=== PATIENT | male | born 1980 | race Caucasian/White ===

== ENCOUNTER 2018-08-01 09:24 | Emergency (ER) | payer BC, OTHER ==
--- NOTE | 2018-08-01 10:18 | EDM.PDOC ---
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 2)During the evening he had spontaneous onset of epistaxis. This made it difficult for him to sleep last night. The episode of epistaxis has relented. 3) left anterior pectoral pain that's intermittent. Not related to coughing or breathing nor is there shortness of breath associated with it. No history of "catching" of his chest on end inspiration when he takes a deep breath. He is a nonsmoker. He denies any family members getting sick or eating unusual food. Yesterday had chicken and green beans no one at sick or experienced diarrhea or abdominal discomfort from the meal at home. Chews occasional tobacco. And drinks 2-3 beers 2-3 times a week. Otherwise he is healthy. Weighs 225 pounds and notes that occasionally he gets anxious. - Related Data Allergies Allergy/AdvReac Type Severity Reaction Status Date / Time No Known Allergies Allergy Verified 08/01/18 09:41 Home Meds: Home Meds . [Unable to Verify Home Med List] 08/01/18 [History] ED ROS GENERAL - Review of Systems Review Of Systems: ROS reveals no pertinent complaints other than HPI. Constitutional: Reports: No Symptoms HEENT: Reports: No Symptoms Respiratory: Reports: Cough Cardiovascular: Reports: Chest Pain Endocrine: Reports: No Symptoms GI/Abdominal: Reports: Diarrhea, Vomiting : Reports: No Symptoms Musculoskeletal: Reports: No Symptoms Skin: Reports: No Symptoms Neurological: Reports: Headache Psychiatric: Reports: Anxiety Hematologic/Lymphatic: Reports: No Symptoms Immunologic: Reports: No Symptoms ED EXAM, GENERAL - Physical Exam Exam: See Below Free Text/Narrative:: Pleasant mesomorphic healthy looking young man who is accompanied by a good friend; patient looks tired and has mild scleral injection. Exam Limited By: No Limitations General Appearance: Alert, WD/WN, Mild Distress Eye Exam: Bilateral Eye: Normal Inspection (Technical easily visualized. Widely dilated pupils react appropriately to lights turned on and off) Ear Exam: Bilateral Ear: Auricle Normal, Canal Normal, TM normal Nose: Normal Inspection, Other (No intranasal blood. Mild dried mucoid crusts noted within the nares no intra intra-nasal erythema) Throat/Mouth: Normal Inspection, Normal Teeth, Normal Gums, Normal Voice, No Airway Compromise, Other (Slightly dry oral mucosa and mild cracking of lips) Respiratory/Chest: No Respiratory Distress, Lungs Clear, Normal Breath Sounds, No Accessory Muscle Use, Chest Non-Tender, Other (With firm pectoral left chest , individual left rib, and left intercostal pressure I could not reciprocate or re-create the chest wall pain. He knows the discomfort is deep. Pain does not occur with end inspiration. No rub noted no rales noted) Cardiovascular: Normal Peripheral Pulses, Regular Rate, Rhythm, No Edema, No Gallop, No JVD, No Murmur, No Rub Peripheral Pulses: 2+: Brachial (L), Brachial (R), Radial (L), Radial (R) GI/Abdominal: Normal Bowel Sounds, Soft, Other ( mild guarding left lower quadrant, no rebound) (Male) Exam: No Hernia, Other (Outpatient testicles without tenderness of pain no hernia noted) Rectal (Males) Exam: Deferred Back Exam: Normal Inspection ( spell several maneuver and straining/coughing), Other (No CVA discomfort with percussion) Extremities: Normal Inspection, Non-Tender, No Pedal Edema, Normal Capillary Refill Neurological: Alert, Oriented, CN II-XII Intact, Normal Cognition, Normal Gait, Normal Reflexes, No Motor/Sensory Deficits Psychiatric: Normal Affect, Normal Mood Skin Exam: Warm, Dry, Intact, Normal Color Lymphatic: Adenopathy EKG INTERPRETATION EKG Date: 08/01/18 Time: 08:31 Rhythm: NSR [place]: Normal P-Wave: Present QRS: Normal ST-T: Normal QT: Normal EKG Interpretation Comments: Deep Q lead 3, smaller Q in aVF diagnosed inferior infarct no ST elevation no arrhythmia diagnosis abnormal EKG Course - Vital Signs Last Recorded V/S: Last Vital Signs Temp 36.6 C 08/01/18 09:43 Pulse 87 08/01/18 09:43 Resp 13 08/01/18 09:43 BP 162/99 H 08/01/18 09:43 Pulse Ox 99 08/01/18 09:43 - Orders/Labs/Meds Orders: Active Orders 24 hr Category Date Time Status EKG Documentation Completion [RC] ASDIRECTED Care 08/01/18 10:08 Active CXR [Chest 2V] [CR] Stat Exams 08/01/18 10:06 Taken EKG 12 Lead [EK] Urgent Ther 08/01/18 10:08 Ordered Labs: Laboratory Tests 08/01/18 08/01/18 08/01/18 Range/Units 10:20 10:20 10:20 WBC 5.5 (4.5-12.0) X10-3/uL RBC 5.08 (4.30-5.75) x10(6)uL Hgb 15.2 (13.5-17.8) g/dL Hct 44.9 (30.0-51.3) % MCV 88.5 (80-96) fL MCH 29.9 (27.7-33.6) pg MCHC 33.8 (32.2-35.4) g/dL RDW 12.2 (11.5-15.5) % Plt Count 195 (125-369) X10(3)uL MPV 7.7 (7.4-10.4) fL Neut % (Auto) 69.8 (46-82) % Lymph % (Auto) 21.4 (13-37) % [facility] % (Auto) 7.0 (4-12) % Eos % (Auto) 1 (1.0-5.0) % Baso % (Auto) 1 (0-2) % Neut # (Auto) 3.8 (1.6-8.3) # Lymph # (Auto) 1.2 (0.6-5.0) # [facility] # (Auto) 0.4 (0.0-1.3) # Eos # (Auto) 0.1 (0.0-0.8) # Baso # (Auto) 0.0 (0.0-0.2) # D-Dimer, Quantitative (0.0-0.59) mg/LFEU Sodium 139 (135-145) mmol/L Potassium 3.3 L (3.5-5.3) mmol/L Chloride 100 (100-110) mmol/L Carbon Dioxide 27 (21-32) mmol/L BUN 16 (7-18) mg/dL Creatinine 1.1 (0.70-1.30) mg/dL Est Cr Clr Drug Dosing TNP Estimated GFR (MDRD) > 60 (>60) BUN/Creatinine Ratio 14.5 (9-20) Glucose 119 H (80-116) mg/dL Calcium 9.2 (8.6-10.2) mg/dL Total Bilirubin 0.8 (0.1-1.3) mg/dL AST 21 (5-25) IU/L ALT 33 (12-36) U/L Alkaline Phosphatase 76 (56-112) IU/L Troponin I < 0.017 L (<0.017-0.056) ng/mL Total Protein 7.5 (6.0-8.0) g/dL Albumin 4.0 (3.5-5.2) g/dL Globulin 3.5 g/dL Albumin/Globulin Ratio 1.1 08/01/18 Range/Units 10:20 WBC (4.5-12.0) X10-3/uL RBC (4.30-5.75) x10(6)uL Hgb (13.5-17.8) g/dL Hct (30.0-51.3) % MCV (80-96) fL MCH (27.7-33.6) pg MCHC (32.2-35.4) g/dL RDW (11.5-15.5) % Plt Count (125-369) X10(3)uL MPV (7.4-10.4) fL Neut % (Auto) (46-82) % Lymph % (Auto) (13-37) % [facility] % (Auto) (4-12) % Eos % (Auto) (1.0-5.0) % Baso % (Auto) (0-2) % Neut # (Auto) (1.6-8.3) # Lymph # (Auto) (0.6-5.0) # [facility] # (Auto) (0.0-1.3) # Eos # (Auto) (0.0-0.8) # Baso # (Auto) (0.0-0.2) # D-Dimer, Quantitative 0.20 (0.0-0.59) mg/LFEU Sodium (135-145) mmol/L Potassium (3.5-5.3) mmol/L Chloride (100-110) mmol/L Carbon Dioxide (21-32) mmol/L BUN (7-18) mg/dL Creatinine (0.70-1.30) mg/dL Est Cr Clr Drug Dosing Estimated GFR (MDRD) (>60) BUN/Creatinine Ratio (9-20) Glucose (80-116) mg/dL Calcium (8.6-10.2) mg/dL Total Bilirubin (0.1-1.3) mg/dL AST (5-25) IU/L ALT (12-36) U/L Alkaline Phosphatase (56-112) IU/L Troponin I (<0.017-0.056) ng/mL Total Protein (6.0-8.0) g/dL Albumin (3.5-5.2) g/dL Globulin g/dL Albumin/Globulin Ratio - Re-Assessments/Exams Free Text/Narrative Re-Assessment/Exam: 08/01/18 10:30 Chest x-ray: Normal no cardiomegaly no infiltrate Departure - Departure Time of Disposition: 10:30 (I was surprised to find that he had abnormalities on his EKG demonstrated inferior old myocardial infarction. Troponins are negative today. D-dimer negative. R/O mild repiratory viral infection pneumothorax or abnormality within the lung. He has a viral mediated process. The influenza test was negative. He Is mildly dehydrated and was flushed with fluids. He's advised to gradually increase his diet as tolerated. He is not nauseated presently. I did not dispense any anti-emetics. He will be following up with his doctor in a week earlier first) Disposition: Home, Self-Care 01 Condition: Good Clinical Impression: Dehydration, mild, Gastroenteritis and colitis, viral, Discomfort in chest, Anxiety, Inferior myocardial infarction Coronary artery disease Qualifiers: Coronary Disease-Associated Artery/Lesion type: [place] artery [place] vs. transplanted heart: [place] heart Associated angina: without angina Qualified Code(s): I25.10 - Atherosclerotic heart disease of [place] coronary artery without angina pectoris Hypertension Qualifiers: Hypertension type: essential hypertension Qualified Code(s): I10 - Essential ( primary) hypertension Instructions: Hypokalemia, Chest Wall Pain Referrals: Holden Irwin MD [Primary Care Provider] - Forms: ED Department Discharge Additional Instructions: May take 1000mg Tylenol and 600mg Ibuprofen for pain and discomfort. Follow up with your Primary Care Provider as needed. May call for questions or come back if symptoms get acutely worse. - My Orders Last 24 Hours: My Active Orders 08/01/18 10:06 CXR [Chest 2V] [CR] Stat 08/01/18 10:08 EKG Documentation Completion [RC] ASDIRECTED EKG 12 Lead [EK] Urgent - Assessment/Plan Last 24 Hours: My Active Orders 08/01/18 10:06 CXR [Chest 2V] [CR] Stat 08/01/18 10:08 EKG Documentation Completion [RC] ASDIRECTED EKG 12 Lead [EK] Urgent
--- NOTE | 2018-08-01 12:39 | CR ---
INDICATION: Pectoral chest pain. CHEST: PA and lateral views of the chest reveal the heart, mediastinum, and bony thorax to be unremarkable. Overlying EKG leads are noted. An active infiltrate or effusion was not identified. IMPRESSION: No active disease. MTDD
== END 2018-08-01 11:20 | disposition home or self-care (01) ==
LOC: FB.ED 09:24
DX: I21.9 Acute myocardial infarction, unspecified (principal); K52.9 Noninfective gastroenteritis and colitis, unspecified; E86.0 Dehydration; I25.10 Atherosclerotic heart disease of native coronary artery without angina pectoris; R07.89 Other chest pain; F41.9 Anxiety disorder, unspecified
CPT/HCPCS: 36415; 71046; 80053; 84484; 85025; 85379; 87804; 87804-59; 93005; 99285-25

== ENCOUNTER 2020-03-05 09:00 | Emergency (ER) | payer OTHER, BC ==
--- NOTE | 2020-03-05 10:20 | EDM.PDOC ---
ED HPI GENERAL MEDICAL PROBLEM - General Chief Complaint: Laceration Time Seen by Provider: 03/05/20 09:10 Source of Information: Reports: Patient History Limitations: Reports: No Limitations - History of Present Illness INITIAL COMMENTS - FREE TEXT/NARRATIVE: Patient presented to the ED because of a left 4th finger injury. 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 He c/o mild pain and is able to extend and flex his finger with mild pain. Left Finger-Ring Pain Score (Numeric/FACES): 4 - Related Data Allergies Allergy/AdvReac Type Severity Reaction Status Date / Time No Known Allergies Allergy Verified 03/05/20 09:31 Home Meds: Home Meds Pantoprazole [ProTONIX Granules] 40 mg PO DAILY 03/05/20 [History] metFORMIN [Glucophage XR] 500 mg PO DAILY 03/05/20 [History] Past Medical History HEENT History: Reports: Impaired Vision Gastrointestinal History: Reports: GERD Endocrine/Metabolic History: Reports: Diabetes, Type II Other Endocrine/Metabolic History: not on medicaton anymore for his DM. - Infectious Disease History Infectious Disease History: Reports: Chicken Pox Social & Family History - Family History Family Medical History: Noncontributory - Tobacco Use Tobacco Use Status *Q: Current Every Day Tobacco User Years of Tobacco use: 7 Packs/Tins Daily: 1 - Caffeine Use Caffeine Use: Reports: Coffee, Tea - Alcohol Use Days Per Week of Alcohol Use: 4 Number of Drinks Per Day: 6 Total Drinks Per Week: 24 - Recreational Drug Use Recreational Drug Use: No ED ROS GENERAL - Review of Systems Review Of Systems: See Below Constitutional: Reports: No Symptoms HEENT: Reports: No Symptoms Respiratory: Reports: No Symptoms Cardiovascular: Reports: No Symptoms Endocrine: Reports: No Symptoms : Reports: No Symptoms Musculoskeletal: Reports: Other (Pain left 4th finger) Skin: Reports: No Symptoms Psychiatric: Reports: No Symptoms ED EXAM, SKIN/RASH Exam: See Below Exam Limited By: No Limitations General Appearance: Alert, No Apparent Distress Ears: Normal External Exam, Normal Canal Nose: Normal Inspection Throat/Mouth: Normal Inspection, Normal Lips Head: Atraumatic, Normocephalic Neck: Normal Inspection, Supple, Non-Tender, Full Range of Motion Respiratory/Chest: No Respiratory Distress, Lungs Clear, Normal Breath Sounds Cardiovascular: Normal Peripheral Pulses, Regular Rate, Rhythm, No Edema, No Gallop GI/Abdominal: Normal Bowel Sounds, Soft, Non-Tender, No Organomegaly Extremities: Normal Inspection, Normal Range of Motion, Other (tenderness and swelling left 4th finger) Neurological: Alert, Oriented, CN II-XII Intact Psychiatric: Normal Affect Course - Vital Signs Text/Narrative:: xray left 4 th [id number] result Last Recorded V/S: Last Vital Signs Temp 36.9 C 03/05/20 09:05 Pulse 89 03/05/20 09:05 Resp 18 03/05/20 09:05 BP 146/110 H 03/05/20 09:05 Pulse Ox 97 03/05/20 09:05 - Orders/Labs/Meds Orders: Active Orders 24 hr Category Date Time Status Hand Comp Min 3V Lt [CR] Stat Exams 03/05/20 09:27 Taken Departure - Departure Time of Disposition: 10:30 Disposition: Home, Self-Care 01 Condition: Good Clinical Impression: Finger injury - Discharge Information Instructions: Finger Sprain, Adult, [id number] Referrals: Nasir Zacarias MD [Primary Care Provider] - Forms: ED Department Discharge Additional Instructions: Please read discharge instructions on finger injury Take ibuprofen 800 mg with tylenol 1000 mg every 8 hours as needed for pain Follow up as needed Sepsis Event Note (ED) - Evaluation Sepsis Screening Result: No Definite Risk - Focused Exam Vital Signs: Vital Signs Temp Pulse Resp BP Pulse Ox 03/05/20 09:05 36.9 C 89 18 146/110 H 97 - My Orders Last 24 Hours: My Active Orders 03/05/20 09:27 Hand Comp Min 3V Lt [CR] Stat - Assessment/Plan Last 24 Hours: My Active Orders 03/05/20 09:27 Hand Comp Min 3V Lt [CR] Stat
--- NOTE | 2020-03-05 11:06 | CR ---
INDICATION: Pinched by a shaft digits 3 through 5. LEFT HAND: Three views of the left hand were obtained 03/05/20 - no comparison. There is soft tissue swelling about the PIPJ of the fourth digit. No significant appearing bone or joint abnormality was identified - no fracture or dislocation was seen. If occult fracture site is suspected clinically - if symptoms persist - reexamination in 10 to 14 days may be helpful. [facility]
== END 2020-03-05 10:45 | disposition home or self-care (01) ==
LOC: FB.ED 09:00
DX: S61.215A Laceration without foreign body of left ring finger without damage to nail, initial encounter (principal); K21.9 Gastro-esophageal reflux disease without esophagitis; E11.9 Type 2 diabetes mellitus without complications; F17.210 Nicotine dependence, cigarettes, uncomplicated; Z79.84 Long term (current) use of oral hypoglycemic drugs; W23.0XXA Caught, crushed, jammed, or pinched between moving objects, initial encounter
CPT/HCPCS: 73130-LT; 99000; 99282; 99283-25